=== PATIENT | female | born 1985 | race Caucasian/White ===

== ENCOUNTER 2021-01-04 15:24 | Emergency (ER) | payer BC, MEDICARE, MEDICAID ==
[~2021-01-04] VITALS: Ht 106.7 cm; Wt 35.9 kg
[2021-01-04] MEDS ORDERED: ketorolac tromethamine 15mg/ml inj. IM ONE (17:10)
[2021-01-04 18:07] VITALS: BP 118/84
== END 2021-01-06 06:44 | disposition home or self-care (01) ==
LOC: ER 01-05 04:00
DX: S16.1XXA Strain of muscle, fascia and tendon at neck level, initial encounter (principal); M54.2 Cervicalgia; R07.0 Pain in throat; R06.02 Shortness of breath; M19.90 Unspecified osteoarthritis, unspecified site; G89.29 Other chronic pain; X58.XXXA Exposure to other specified factors, initial encounter; Y93.89 Activity, other specified; Y92.89 Other specified places as the place of occurrence of the external cause; Y99.8 Other external cause status
CPT/HCPCS: 72050; 96372; 99283; J1885